=== PATIENT | female | born 1950 | race Two or more races ===

== ENCOUNTER → 2020-05-27 | Outpatient (CLI) | payer MEDICARE ==
[2020-05-27 09:49] LABS: HCT 38.1 % (34.0-46.0); HGB 12.4 gm/dL (11.4-16.0); MCH 29.6 pg (25.0-35.0); MCHC 32.7 g/dL (31.0-37.0); MCV 90.5 fL (80.0-100.0); Mean Platelet Volume 6.7; Platelet Count 182 k/uL (150-450); RBC 4.21 m/uL (3.80-5.40); RDW 13.8 % (11.5-15.5); WBC 7.8 k/uL (3.8-10.6)
[2020-05-27 09:54] LABS: INR 0.9 (<1.2); Partial Thromboplastin Time 24.2 sec (22.0-30.0); Prothrombin Time 9.6 sec (9.0-12.0)
[2020-05-27 10:08] LABS: Appearance,Urine Clear (Clear); Bilirubin,Urine Negative (Negative); Blood,Urine Negative (Negative); Color,Urine Light Yellow; Glucose,Urine (UA) Negative (Negative); Ketones,Urine Negative (Negative); Leukocyte Esterase,Urine Negative (Negative); Nitrite,Urine Negative (Negative); Protein,Urine Negative (Negative); Specific Gravity,Urine 1.009 (1.001-1.035); Urobilinogen,Urine <2.0 mg/dL (<2.0)
[2020-05-27 10:32] LABS: Albumin 4.4 g/dL (3.5-5.0); Calcium 9.8 mg/dL (8.4-10.2); Potassium 4.5 mmol/L (3.5-5.1); Total Bilirubin 0.6 mg/dL (0.2-1.3); Total Protein 7.1 g/dL (6.3-8.2)
== END | disposition home or self-care (01) ==
LOC: LABPAT 07:57
PROVIDERS: ATTEND Orthopaedic Surgery
DX: Z01.818 Encounter for other preprocedural examination (principal); Z01.812 Encounter for preprocedural laboratory examination; Z79.01 Long term (current) use of anticoagulants
CPT/HCPCS: 36415; 80053; 81003; 85027; 85610; 85730; 86850; 86900; 86901; 87070; 93005

== ENCOUNTER 2020-06-03 09:31 | Observation (INO) | payer MEDICARE ==
[2020-05-27 15:40] VITALS: BMI 47.6
[~2020-06-03 09:31] MED LIST: ACETAMINOPHEN TAB 500 MG TAB PO ONE; DEXAMETHASONE SOD PHOSPHATE 10 MG/ML 1 ML VIAL IV ONE; GABAPENTIN 300 MG CAP PO ONE; MELOXICAM 7.5 MG TAB PO ONE; MIDAZOLAM 2 MG/2 ML VIAL IV PRN; ONDANSETRON 4 MG/2 ML VIAL IVP ONE; ROPIVACAINE 246.25 MG, EPINEPHrine 0.5 MG, KETOROLAC 30 MG, cloNIDine HCL/PF 80 MCG, WA... MISCELLANE ONE; TRANEXAMIC ACID 1,000 MG in SODIUM CHLORIDE 0.9% 100 ML IVPB ONE; ceFAZolin 3 GM in SODIUM CHLORIDE 0.9% 100 ML IVPB ONE
[2020-06-03] MEDS ORDERED: ACETAMINOPHEN TAB 500 MG TAB ONE (09:58)
[2020-06-03] MEDS ORDERED: ONDANSETRON 4 MG/2 ML VIAL ONE (09:58)
[2020-06-03] MEDS: LACTATED RINGERS 1,000 ML IV SCH (10:10)
[2020-06-03] MEDS ORDERED: PROPOFOL 10 MG/ML 20 ML VIAL IV ONE (11:40)
[2020-06-03] MEDS ORDERED: GLYCOPYRROLATE 0.2 MG/ML 2 ML VIAL ONE (11:40)
[2020-06-03] MEDS ORDERED: fentaNYL (PF) 50 MCG/ML 2 ML AMP ONE (11:40)
[2020-06-03] MEDS ORDERED: ROCURONIUM 10 MG/ML (5 ML VIAL) IV ONE (11:40)
[2020-06-03] MEDS ORDERED: NEOSTIGMINE 1 MG/ML 10 ML VIAL ONE (11:40)
[2020-06-03] MEDS ORDERED: SODIUM CHLORIDE 0.9% IRRIG 1,000 ML BTL IRRIGATION ONE (11:40)
[2020-06-03] MEDS ORDERED: MIDAZOLAM 2 MG/2 ML VIAL ONE (11:40)
[2020-06-03] MEDS ORDERED: KETAMINE 10 MG/ML 20 ML VIAL ONE (11:40)
[2020-06-03] MEDS ORDERED: SODIUM CHLORIDE 0.9% 100 ML BAG ONE (11:40)
[2020-06-03] MEDS ORDERED: HEPARIN SODIUM,PORCINE 10,000 UNIT/ML 1 ML VIAL ONE (11:40)
[2020-06-03] MEDS ORDERED: TRANEXAMIC ACID 1,000 MG/10 ML VIAL ONE (11:40)
[2020-06-03] MEDS ORDERED: SUCCINYLCHOLINE CHLORIDE 100 MG/5 ML SYR IV ONE (11:40)
[2020-06-03] MEDS ORDERED: HYDROmorphone (PF) 1 MG/ML ONE (11:40)
[2020-06-03] MEDS ORDERED: LACTATED RINGERS 1,000 ML IV ONE ×2 (13:26→15:24)
--- NOTE | 2020-06-03 13:38 | XR ---
Fluoroscopy History: RT TOTAL HIP Rt total hip. 42 sec fl. 3 images scanned.
--- NOTE | 2020-06-03 13:47 | P.OP ---
Date of Procedure: 06/03/20 Preoperative Diagnosis: Severe osteoarthritis right hip Postoperative Diagnosis: Severe osteoarthritis right hip Procedure(s) Performed: Right total hip arthroplasty with a direct anterior approach Implants: العلي and nephew Polarstem size 3 standard العلي [employer] Nephew R3, 3 hole acetabular shell, 52 mm ال[employer]ي [employer] Nephew reflection 6.5 mm cancellus screw, 20 mm 2 [employer]ي [employer] Nephew R3, XLPE 20 acetabular liner العلي [employer] Nephew Oxinium femoral head 36 m, -3 All components were press-fit. The articulation is Oxinium on polyethylene. Anesthesia: spinal Surgeon: Juan Miguel Ornelas Commercial Sales Consultant #1: Jesse Bhagat Estimated Blood Loss (ml): 250 (120 mL returned with Cell Saver) Pathology: other (Femoral head) Condition: stable Disposition: PACU Indications for Procedure: After failure of conservative treatment we discussed the surgical and nonsurgical treatment options at length. Patient wishes to proceed with a total hip arthroplasty with a direct anterior approach. Complications specific to this procedure were discussed at length, including but not limited to infection, leg length discrepancy, dislocation, and nerve injury. Covid-19 was also discussed at length with the patient, and they are aware of the current policies and procedures. The patient was given the option of delaying surgery, but they elect to proceed knowing these risks. Patient is aware of all these complications and informed consent was obtained Operative Findings: The operative findings are consistent with severe osteoarthritis of the right hip Description of Procedure: Patient was seen and evaluated in the preoperative area, consent was reviewed, and the surgical site was marked with a skin marker. Patient was then brought to the operating room and given prophylactic antibiotics intravenously. 1 g of Tranexamic acid was also given. A spinal anesthetic was administered by the anesthesia department. The patient was then placed on the [place] table with the bony prominences well-padded. The hip area was then prepped and draped in usual sterile fashion. A universal timeout was then performed, which confirmed the patient's name, surgical site, ALLERGIES, and procedure being performed. Next the incision site was located at 1 cm distal and 1 cm lateral to the anterior superior iliac spine. The skin and subcutaneous tissues were sharply incised. Incision was carefully dissected down to the fascia overlying the tensor fascia karel muscle. This fascia was then incised in line with the incision. Next, using blunt finger dissection, the tensor fascia karel muscle was dissected off its investing fascia. The muscle was then carefully retracted laterally with a cobra retractor over the lateral neck of the femur. Next, the circumflex vessels were identified and cauterized using the AquaMantis device. The anterior hip capsule was then exposed. The capsule was then opened and an inverted T fashion. Cobra retractors were then placed intracapsularly. The proximal femur was then visualized. The femoral neck was then osteotomized appropriate level above the lesser trochanter. Small amount of traction was placed with the [place] table. A small wedge of bone was then removed from the remaining femoral head. Next, using a corkscrew femoral head was easily removed from the acetabulum. On gross visual inspection, the femoral head had complete loss of articular cartilage in multiple periarticular osteophytes. Attention was then turned to the acetabulum. the acetabulum was exposed and any remaining labrum was excised. Sequential reaming of the acetabulum was performed using fluoroscopic guidance. When the appropriate size was reached, a trial was then placed. The position and fit of the trial was checked with fluoroscopy. The trial was then removed. Then, using fluoroscopic guidance, the final implant was impacted at 20 of anteversion and 40 of abduction, and fully seated in the acetabulum. 2 screws were then placed in the acetabulum. Again fluoroscopy was used to check position of the screws. Next, the liner was then impacted, with a 20 elevated liner located in the anterior superior quadrant. Component locking was confirmed. Attention was then directed to the femur. With the aid of the [place] table, the femur was externally rotated to approximately 130, extended, and abducted under the opposite leg. A side hook was then placed under the proximal femur, and the side hook elevator was used to elevate the proximal femur. Retractors were then placed. A capsular release was performed, as well as a release of the conjoined tendon, which afforded excellent visualization of the proximal femur. Next, a box osteotome was used to lateralize the proximal femur. A seasonal package handler was then used to locate the femoral canal. Sequential broaching was then performed with appropriate size which afforded excellent fixation in the proximal femur. A trial was then placed with appropriate head and neck, and the hip was gently reduced with the aid of the [place] table. Fluoroscopy was then used to check position of the components, as well as to ensure equal leg lengths. The hip was then gently dislocated and the trials were then removed. Final implants were then impacted and the hip was again reduced. Final fluoroscopic x-rays confirmed that the components were in anatomic position, as well as equal leg lengths. The hip was also taken through range of motion, and found to be stable. The hip was then copiously irrigated with antibiotic solution with pulsatile lavage. The hip was then irrigated with Irrisept solution. The soft tissues were then injected with a ropivacaine solution, which consisted of 246.25 mg of ropivacaine, 0.5 mg of epinephrine, 30 mg of Toradol, 80 g of clonidine, and 48.45 mL of sterile water, for a total of 100 mL of fluid injected. A second dose of 1 g of Tranexamic acid was also given. the fascia was then closed with 2-0 strata fix suture. The subcutaneous tissue was closed with 3-0 Vicryl. The subcuticular tissue was closed with 3-0 strata fix suture. The skin was then closed with Dermabond glue and a sterile silver dressing. The patient was then transferred to the recovery room in stable condition. The sales and marketing assistant CHANA Petty was required due to the complexity of surgery, and the need for skilled surgical services director for positioning, draping, exposure, retraction, and closure of the wound.
[2020-06-03] MEDS ORDERED: ONDANSETRON 4 MG/2 ML VIAL IVP PRN (14:26)
[2020-06-03] MEDS ORDERED: NALOXONE 0.4 MG/ML 1 ML VIAL IV PRN (14:26)
[2020-06-03] MEDS ORDERED: hydrOXYzine pamoate 25 MG CAP PO PRN (14:26)
[2020-06-03] MEDS ORDERED: HYDROmorphone 0.5 MG/0.5 ML SYRINGE IVP PRN ×2 (14:26)
[2020-06-03] MEDS ORDERED: HYDROcodone/APAP 5-325MG 1 EACH TAB PO PRN (14:26)
[2020-06-03] MEDS: HYDROmorphone 0.5 MG/0.5 ML SYRINGE IVP PRN ×4 (14:40→22:47)
--- NOTE | 2020-06-03 14:59 | XR ---
EXAMINATION TYPE: XR Hip Limited RT DATE OF EXAM: 06/03/2020 CLINICAL HISTORY: Postoperative evaluation TECHNIQUE: Single portable view of the right hip was submitted. FINDINGS: Noted are changes of total hip arthroplasty with femoral and acetabular components appearin g well seated. Alignment is anatomic. Postsurgical soft tissue changes are evident. IMPRESSION: Satisfactory postoperative alignment
[2020-06-03] MEDS ORDERED: ONDANSETRON 4 MG/2 ML VIAL IVP ONE (15:13)
[2020-06-03] MEDS ORDERED: KETOROLAC 30 MG/ML 1 ML VIAL IVP ONE (15:20)
[2020-06-03] MEDS: ceFAZolin 3 GM in SODIUM CHLORIDE 0.9% 100 ML IVPB SCH (20:48)
[2020-06-03] MEDS: SENNOSIDES-DOCUSATE SODIUM 1 EACH TAB PO SCH (20:49)
[2020-06-03] MEDS: ASPIRIN 325 MG TAB PO SCH (20:49)
[2020-06-03] MEDS: HYDROcodone/APAP 5-325MG 1 EACH TAB PO PRN (20:54)
[2020-06-04] MEDS: HYDROmorphone 0.5 MG/0.5 ML SYRINGE IVP PRN (01:58)
[2020-06-04] MEDS: GABAPENTIN 400 MG CAP PO SCH ×4 (02:00→23:00)
[2020-06-04] MEDS: ceFAZolin 3 GM in SODIUM CHLORIDE 0.9% 100 ML IVPB SCH (04:57)
[2020-06-04] MEDS: LACTATED RINGERS 1,000 ML IV SCH (07:21)
[2020-06-04] MEDS: HYDROcodone/APAP 5-325MG 1 EACH TAB PO PRN (07:51)
[2020-06-04] MEDS: METOPROLOL SUCCINATE (ER) 50 MG TAB.ER.24H PO SCH (07:52)
[2020-06-04] MEDS: DULoxetine HCL 60 MG CAPSULE.DR PO SCH (07:52)
[2020-06-04] MEDS: ASPIRIN 325 MG TAB PO SCH ×2 (07:52→20:29)
[2020-06-04 09:10] LABS: Basophils % (A) 0 %; Eosinophils % (A) 0 %; HCT 32.4 % (34.0-46.0); HGB 10.4 gm/dL (11.4-16.0); Lymphocytes # (A) 1.2 k/uL (1.0-4.8); Lymphocytes % (A) 13 %; MCH 29.2 pg (25.0-35.0); MCHC 32.2 g/dL (31.0-37.0); MCV 90.6 fL (80.0-100.0); Mean Platelet Volume 7.4; Monocytes # (A) 0.6 k/uL (0-1.0); Monocytes % (A) 7 %; Neutrophils # (A) 6.9 k/uL (1.3-7.7); Neutrophils % (A) 78 %; Platelet Count 213 k/uL (150-450); RBC 3.57 m/uL (3.80-5.40); RDW 13.7 % (11.5-15.5); WBC 8.9 k/uL (3.8-10.6)
[2020-06-04] MEDS ORDERED: HYDROcodone/APAP 7.5-325MG 1 EACH TAB PO PRN (12:22)
--- NOTE | 2020-06-04 12:36 | P.PN ---
Subjective Progress Note Date: 06/04/20 This is a 69 year-old female who is status post right total hip arthroplasty. This is postoperative day #1 and patient is seen and evaluated at bedside with Dr. Juan Miguel Ornelas. Patient states that the right hip is sore today, but she has been up and walking. Patient denies any fever/chills, numbness, weakness or tingling. Objective - Vital Signs Vital signs: Vital Signs Temp 98.0 F 06/04/20 07:04 Pulse 82 06/04/20 07:04 Resp 16 06/04/20 07:04 BP 134/61 06/04/20 07:04 Pulse Ox 94 L 06/04/20 07:04 Intake & Output 06/03/20 06/04/20 06/04/20 18:59 06:59 18:59 Intake Total 2100 Output Total 250 350 Balance 1850 -350 Weight 135.8 kg Intake: IV 2100 Output: Urine 350 Estimated Blood Loss 250 Other: # Voids 1 - Exam On inspection dressing is clean, dry and intact. Minimal swelling to the right lower extremity. There is no erythema. Calf is soft and nontender to palpation. Patient has full foot and ankle motion without pain or difficulty. Neurovascular and circulatory status are intact. - Labs CBC & Chem 7: 06/04/20 07:59 Labs: Abnormal Lab Results - Last 24 Hours (Table) 06/04/20 Range/Units 07:59 RBC 3.57 L (3.80-5.40) m/uL Hgb 10.4 L (11.4-16.0) gm/dL Hct 32.4 L (34.0-46.0) % Assessment and Plan (1) Osteoarthritis of right hip Current Visit: Yes Status: Acute Code(s): M16.11 - UNILATERAL PRIMARY OSTEOARTHRITIS, RIGHT HIP SNOMED Code(s): 280135572906068 (2) Status post total hip replacement, right Current Visit: Yes Status: Acute Code(s): Z96.641 - PRESENCE OF RIGHT ARTIFICIAL HIP JOINT SNOMED Code(s): 207119668397 Plan: 1. Weightbearing as tolerated to the right lower extremity. 2. Continue routine postoperative care and pain control. 3. Ice to the right hip as needed. 4. Continue physical therapy. 5. Aspirin for DVT prophylaxis. 6. Plan for discharge home with home care tomorrow.
[2020-06-04] MEDS ORDERED: METHYL SALICYLATE/MENTHOL CREAM 5 OZ TOPICAL PRN (12:44)
[2020-06-04] MEDS: HYDROcodone/APAP 7.5-325MG 1 EACH TAB PO PRN ×2 (12:47→20:29)
[2020-06-04] MEDS ORDERED: FLUTICASONE 50MCG/SPRAY NASAL 16GM EA NOSTRIL PRN (13:43)
[2020-06-04] MEDS: SENNOSIDES-DOCUSATE SODIUM 1 EACH TAB PO SCH (20:29)
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
[2020-06-04] MEDS ORDERED: NON FORMULARY DRUG (Aspirin [Adult Low Dose Aspirin Ec] 81 MG) PO SCH (21:00)
[2020-06-05] MEDS: LACTATED RINGERS 1,000 ML IV SCH (01:35)
[2020-06-05] MEDS: HYDROcodone/APAP 7.5-325MG 1 EACH TAB PO PRN ×2 (05:56→11:08)
[2020-06-05 07:37] VITALS: BP 118/75; PULSE 86; RESP 18; TEMP 99.5
[2020-06-05] MEDS: ASPIRIN 325 MG TAB PO SCH (07:52)
[2020-06-05] MEDS: METOPROLOL SUCCINATE (ER) 50 MG TAB.ER.24H PO SCH (07:52)
[2020-06-05] MEDS: DULoxetine HCL 60 MG CAPSULE.DR PO SCH (07:52)
[2020-06-05] MEDS: GABAPENTIN 400 MG CAP PO SCH (07:53)
[2020-06-05] MEDS ORDERED: POTASSIUM CHLORIDE ER 20 MEQ TAB.ER PO SCH (09:00)
[2020-06-05] MEDS ORDERED: MULTIVITAMINS, THERA 1 EACH TAB PO SCH (09:00)
--- NOTE | 2020-06-05 10:16 | P.DS ---
Providers Date of admission: 06/04/20 11:16 Expected date of discharge: 06/05/20 Attending physician: Juan Miguel Ornelas Consults: 06/03/20 14:26 Consult Physician Routine Consulting Provider: Boris Verdugo Consult Reason/Comments: medical management Do you want consulting provider notified?: Yes Primary care physician: Bal Corral MD Hospital Course: This is a 74-year-old female who was last seen in our office by Dr. Juan Miguel Ornelas with complaints of continued right hip pain. The patient has a known history of degenerative arthritis of the right hip and presents to discuss surgical options. After discussion and consideration the patient elects to proceed with total right hip arthroplasty. She is seen preoperatively by her family physician and cleared for surgery. The patient is admitted to [facility] for total right hip arthroplasty. The procedure is performed without complication or sequelae. The patient is doing well postoperatively. Vital signs and postoperative labs are stable. The patient is seen and examined bedside this morning. She is sitting up in the bedside chair. She states she is experiencing minimal pain in the right hip. She has been up ambulating with physical therapy today with a walker with minimal assistance. She states she otherwise feels well. She denies chest pain, shortness breath, nausea, vomiting, fevers, chills. She has no complaints this morning. Vital sign stable. On examination, the patient is sitting up in the bedside chair in no apparent distress. She is alert and orientated x3. On inspection of the right hip, there is a clean, dry, intact Optifoam dressing in place. No bleeding or drainage through the dressing. Mild pain on palpation of the right hip. Thigh is soft and compressible. Patient has good strength and range of motion of the right ankle. Motor and sensory function intact of the right lower extremity. The right lower extremity is warm and well perfused with brisk capillary refill distally. Calf is soft and nontender to palpation. The patient is discharged to home with home health services today in good condition, pending medical clearance. Please see discharge orders. Please refer to the med rec for accurate list of medications. Patient Condition at Discharge: Fair Plan - Discharge Summary Discharge Rx Participant: Yes New Discharge Prescriptions: New Aspirin 325 mg PO BID #60 tab Sennosides [Senokot] 2 tab PO DAILY PRN #60 tablet PRN Reason: Constipation HYDROcodone/APAP 7.5-325MG [Maria Stein 7.5-325] 1 - 2 tab PO Q6H PRN #32 tab PRN Reason: Pain No Action Losartan Potassium 100 mg PO QAM DULoxetine HCL [Cymbalta] 60 mg PO DAILY Potassium Chloride 20 meq PO QAM Gabapentin 800 mg PO Q8HR Triamterene/Hydrochlorothiazid [Triamterene-Hctz 37.5-25 mg Tb] 2 each PO QAM Metoprolol Succinate (ER) [Toprol Xl] 50 mg PO DAILY Furosemide 20 mg PO DAILY Multivitamins, Thera [Multivitamin (formulary)] 1 tab PO DAILY Vitamin E 500 unit PO DAILY Aspirin [Adult Low Dose Aspirin EC] 81 mg PO HS Fluticasone Nasal [place] [Flonase Nasal [place]] 2 spr EA NOSTRIL DAILY PRN PRN Reason: alerrgies Discharge Medication List Aspirin [Adult Low Dose Aspirin EC] 81 mg PO HS 05/27/20 [History] DULoxetine HCL [Cymbalta] 60 mg PO DAILY 05/27/20 [History] Fluticasone Nasal [place] [Flonase Nasal [place]] 2 spr EA NOSTRIL DAILY PRN 05/27/20 [History] Furosemide 20 mg PO DAILY 05/27/20 [History] Gabapentin 800 mg PO Q8HR 05/27/20 [History] Losartan Potassium 100 mg PO QAM 05/27/20 [History] Metoprolol Succinate (ER) [Toprol Xl] 50 mg PO DAILY 05/27/20 [History] Multivitamins, Thera [Multivitamin (formulary)] 1 tab PO DAILY 05/27/20 [History] Potassium Chloride 20 meq PO QAM 05/27/20 [History] Triamterene/Hydrochlorothiazid [Triamterene-Hctz 37.5-25 mg Tb] 2 each PO QAM 05/27/20 [History] Vitamin E 500 unit PO DAILY 05/27/20 [History] Aspirin 325 mg PO BID #60 tab 06/04/20 [Rx] HYDROcodone/APAP 7.5-325MG [[place] 7.5-325] 1 - 2 tab PO Q6H PRN #32 tab 06/04/20 [Rx] Sennosides [Senokot] 2 tab PO DAILY PRN #60 tablet 06/04/20 [Rx] Follow up Appointment(s)/Referral(s): Bal Corral MD [Primary Care Provider] - 06/13/20 9:30 am (at the walk in clinic at [facility]) Juan Miguel Ornelas DO [Doctor of Osteopathic Medicine] - 06/16/20 3:00 pm (With Jessica) Patient Instructions/Handouts: How to Choose and Use a Walker (GEN), Anterior Hip Replacement (DC) Activity/Diet/Wound Care/Special Instructions: [facility] home care: [phone] Weight bear as tolerated with walker. Remove dressing in 10 days. May shower with dressing intact. Wear compression stockings until follow up Take pain medications as prescribed. Ice incision as needed. Report any problems or concerns to [facility] at [phone] Discharge Disposition: HOME WITH HOME HEALTH SERVICES
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
== END 2020-06-05 13:57 | disposition home health service (06) ==
LOC: OR 09:31 → 4SSUR 13:51 → OR 06-04 11:16
PROVIDERS: ADMIT Orthopaedic Surgery; ATTEND Orthopaedic Surgery
DX: M16.11 Unilateral primary osteoarthritis, right hip (principal); I10 Essential (primary) hypertension; M79.7 Fibromyalgia; M19.90 Unspecified osteoarthritis, unspecified site; Z79.899 Other long term (current) drug therapy; Z79.82 Long term (current) use of aspirin; Z88.0 Allergy status to penicillin; Z87.828 Personal history of other (healed) physical injury and trauma; E66.01 Morbid (severe) obesity due to excess calories; Z68.42 Body mass index [BMI] 45.0-49.9, adult; M25.562 Pain in left knee; Z98.1 Arthrodesis status; Z96.652 Presence of left artificial knee joint; Z80.9 Family history of malignant neoplasm, unspecified; Z82.49 Family history of ischemic heart disease and other diseases of the circulatory system; Z82.61 Family history of arthritis
CPT/HCPCS: 97162; 97535; 97166; 86891; 85025; 88300; 73501; 27130; G0378 ×2; P9022; C1776; J2250; J0171; J1644; J1100; J2710; J0690 ×2; J2405; J3010; J1885; J1170 ×3; J2795; J0330; J2704; J0735; 86850; 86900; 86901

== ENCOUNTER 2024-03-04 15:52 | Inpatient (IN) | payer MEDICARE ==
[2024-03-04 17:18] LABS: Basophils % (A) 0 %; Eosinophils # (A) 0.1 k/uL (0-0.7); Eosinophils % (A) 1 %; HCT 33.4 % (34.0-46.0); HGB 11.2 gm/dL (11.4-16.0); Lymphocytes % (A) 14 %; MCH 31.7 pg (25.0-35.0); MCHC 33.6 g/dL (31.0-37.0); MCV 94.3 fL (80.0-100.0); Mean Platelet Volume 7.8; Monocytes # (A) 0.3 k/uL (0-1.0); Monocytes % (A) 5 %; Neutrophils # (A) 5.6 k/uL (1.3-7.7); Neutrophils % (A) 78 %; Platelet Count 172 k/uL (150-450); RBC 3.55 m/uL (3.80-5.40); RDW 15.4 % (11.5-15.5); WBC 7.2 k/uL (3.8-10.6)
[2024-03-04 17:31] LABS: ALT 43 U/L (4-34); AST 40 U/L (14-36); African American GFR (CKD) 59 (>60 ml/min/1.73 sqM); Alkaline Phosphatase 85 U/L (38-126); Anion Gap 7 mmol/L; Blood Urea Nitrogen 49 mg/dL (7-17); Carbon Dioxide 29 mmol/L (22-30); Chloride 103 mmol/L (98-107); Glucose 129 mg/dL (74-99); Non-African American GFR(CKD) 51 (>60 ml/min/1.73 sqM); Potassium 4.8 mmol/L (3.5-5.1); Sodium 139 mmol/L (137-145); Total Bilirubin 0.3 mg/dL (0.2-1.3); Total Protein 6.5 g/dL (6.3-8.2)
[2024-03-04 17:38] LABS: INR 0.9 (<1.2); Partial Thromboplastin Time 21.6 sec (22.0-30.0); Prothrombin Time 10.2 sec (10.0-12.5)
[2024-03-04 17:39] LABS: NT-Pro-B-Type Natriuretic Pept 1140 pg/mL
--- NOTE | 2024-03-04 18:08 | XR ---
EXAMINATION TYPE: XR chest 2V DATE OF EXAM: 03/04/2024 5:38 PM CLINICAL INDICATION:Female, 73 years old with history of Chest Pain; dizziness. COMPARISON: None TECHNIQUE: XR chest 2V Frontal and lateral views of the chest. FINDINGS: Lungs/Pleura: There is no evidence of pleural effusion, focal consolidation, or pneumothorax. Pulmonary vascularity: Unremarkable. Heart/mediastinum: Cardiomediastinal silhouette is unremarkable. Musculoskeletal: No acute osseous pathology. Bilateral shoulder prostheses are identified. Partially visualized cervical fusion hardware. IMPRESSION: No acute cardiopulmonary disease/process.
[2024-03-04 19:04] LABS: Appearance,Urine Clear (Clear); Bilirubin,Urine Negative (Negative); Blood,Urine Negative (Negative); Color,Urine Colorless; Glucose,Urine (UA) Negative (Negative); Ketones,Urine Negative (Negative); Leukocyte Esterase,Urine Negative (Negative); Nitrite,Urine Negative (Negative); Protein,Urine Negative (Negative); Specific Gravity,Urine 1.008 (1.001-1.035); Urobilinogen,Urine <2.0 mg/dL (<2.0)
--- NOTE | 2024-03-04 19:38 | CT ---
EXAMINATION TYPE: CT chest angio for PE CT DLP: 820.8 mGycm, Automated exposure control for dose reduction was used. DATE OF EXAM: 03/04/2024 7:28 PM COMPARISON: None. CLINICAL INDICATION:Female, 73 years old with history of chest pain, shortness of breath; elevated d- dimer TECHNIQUE/CONTRAST: CTA scan of the thorax is performed with IV Contrast, patient injected with 100 mL of Isovue 370, MIP images are created and reviewed these are created on a separate workstation.. FINDINGS: Pulmonary Artery: There is no evidence for a filling defect within the pulmonary vasculature to sugge st acute pulmonary embolism. The pulmonary artery is of normal size. Lungs/Pleura: No evidence of focal consolidation, pleural effusion or pneumothorax. Airway: Large airways are patent. Heart: Heart is within normal limits for size. Vasculature: No evidence of aortic aneurysm. Mediastinum: No gross evidence of adenopathy. Musculoskeletal: Moderate degenerative disc disease changes are present throughout the thoracolumbar spine. Soft Tissues: Unremarkable. Lower neck: No significant findings. Upper Abdomen: Partially visualized hepatic cysts. Cholelithiasis. IMPRESSION: 1. No evidence of pulmonary embolism. 2. Cholelithiasis.
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
[2024-03-04] MEDS ORDERED: NALOXONE 0.4 MG/ML 1 ML VIAL IV PRN (21:39)
[2024-03-04] MEDS ORDERED: HYDROmorphone 1 MG/ML 1 ML SYRINGE IVP PRN (21:39)
[2024-03-04] MEDS ORDERED: KETOROLAC 15 MG/ML 1 ML VIAL IVP PRN (21:39)
[2024-03-04] MEDS ORDERED: HYDROmorphone 0.5 MG/0.5 ML SYRINGE IVP PRN (21:39)
[2024-03-04] MEDS ORDERED: ONDANSETRON 4 MG/2 ML VIAL IVP PRN (21:39)
[2024-03-05] MEDS: METOPROLOL SUCCINATE (ER) 50 MG TAB.ER.24H PO SCH (10:01)
[2024-03-05] MEDS ORDERED: CAFFEINE CITRATE 60 MG/3 ML VIAL IV PRN (10:25)
[2024-03-05] MEDS ORDERED: AMINOPHYLLINE 500 MG/20 ML VIAL IV PRN (10:25)
[2024-03-05] MEDS ORDERED: REGADENOSON 0.4 MG/5 ML SYRINGE IV PRN (10:25)
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
[2024-03-05] MEDS: GABAPENTIN 400 MG CAP PO SCH (12:02)
[2024-03-05] MEDS: DULoxetine HCL 60 MG CAPSULE.DR PO SCH (12:02)
[2024-03-05] MEDS: ASPIRIN 81 MG PO SCH (21:10)
[2024-03-05] MEDS: ATORVASTATIN 20 MG TAB PO SCH (21:10)
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
[2024-03-05] MEDS: HEPARIN SODIUM,PORCINE 5,000 UNIT/ML 1 ML VIAL SQ SCH (23:53)
[2024-03-06 07:20] LABS: Basophils % (A) 0 %; Eosinophils # (A) 0.2 k/uL (0-0.7); Eosinophils % (A) 3 %; HCT 34.8 % (34.0-46.0); Lymphocytes # (A) 1.7 k/uL (1.0-4.8); Lymphocytes % (A) 27 %; MCH 29.8 pg (25.0-35.0); MCHC 31.7 g/dL (31.0-37.0); MCV 94.1 fL (80.0-100.0); Mean Platelet Volume 7.9; Monocytes # (A) 0.4 k/uL (0-1.0); Monocytes % (A) 7 %; Neutrophils # (A) 3.7 k/uL (1.3-7.7); Neutrophils % (A) 61 %; Platelet Count 164 k/uL (150-450); RBC 3.69 m/uL (3.80-5.40); RDW 15.5 % (11.5-15.5); WBC 6.1 k/uL (3.8-10.6)
[2024-03-06 07:38] LABS: African American GFR (CKD) 67 (>60 ml/min/1.73 sqM); Anion Gap 4 mmol/L; Blood Urea Nitrogen 31 mg/dL (7-17); Calcium 9.3 mg/dL (8.4-10.2); Carbon Dioxide 32 mmol/L (22-30); Chloride 104 mmol/L (98-107); Glucose 111 mg/dL (74-99); Non-African American GFR(CKD) 58 (>60 ml/min/1.73 sqM); Sodium 140 mmol/L (137-145)
--- NOTE | 2024-03-06 12:37 | NM ---
EXAMINATION TYPE: NM stress Lexiscan cardiol ite DATE OF EXAM: 03/06/2024 COMPARISON: NONE CLINICAL INDICATION: Female, 73 years old with history of chest pain; TECHNIQUE: After the intravenous administration of 10.8 mCi Tc 99m Sestamibi - Cardiolite resting SP ECT images acquired 45 minutes post injection. The patient received 0.4mg Lexiscan, 26.6 mCi Tc 99m Sestamibi - Stress images obtained [address] injection FINDINGS: Review of stress and rest SPECT images demonstrates no distinct perfusion abnormality. Gated analysi s shows normal wall motion with an estimated left ventricular ejection fraction of 53 %. SUM stress score: 18. SUM resting score: 19. SUM difference score 4. Suggest infarction with mild kevin-infarct reversible ischemia. Transient ischemic dilatation: 0.96. IMPRESSION: Findings indicate septal, apical and inferolateral infarct with mild kevin-infarct reversible severe i schemia.
--- NOTE | 2024-03-06 12:57 | CA ---
Lexiscan Nuclear Stress Test Report Name: Jeane Wiggins Exam Date: 03/06/2024 10:07 Exam Location: [facility] Stress Ht (in): 66 Wt (lb): 285 BSA: 2.33 Ordering Phys: Tara Joiner Referring Phys: EMA, Technologist: Gray Brunner Age: 73 Gender: F : 1950 Procedure CPT: Indications: Reflex order-Stress test ICD-10 Codes: Patient History: Medications: SEE CHART Meds past 24 hrs: Pretest Chest Pain: STRESS TEST Lexiscan Protocol Exercise Duration (min:sec): 02:[address] Depressions (mm): Angina Score: Yancey Score: Resting HR (bpm): 80 Peak HR (bpm): 95 Resting BP (mmHg): 163 / 50 Peak BP (mmHg): 186 / 77 MPHR: 149 Target HR: 127 % MPHR: 64 METS: 1.0 Total Dose: Peak Dose: Atropine: Double Product: 87522 BP Response: Stress Termination: PROTOCOL COMPLETE Stress Symptoms: NO SYMPTOMS Stress Summary: ECG ANALYSIS Resting ECG: Stress ECG: CONCLUSIONS Nondiagnostic stress testing Dr. Cirilo Bates MD (Electronically Signed) Final Date: 06 Mar 2024 12:56
[2024-03-06] MEDS ORDERED: ALPRAZolam 0.25 MG TAB PO PRN (13:07)
[2024-03-06] MEDS ORDERED: NITROGLYCERIN SL TABS 0.4 MG TAB SUBLINGUAL PRN (13:07)
[2024-03-06] MEDS ORDERED: ALPRAZolam 0.5 MG TAB PO PRN (13:07)
--- NOTE | 2024-03-06 13:15 | CA ---
Transthoracic Echo Report Name: Jeane Wiggins Age: 73 Gender: F : 1950 Exam Date: 03/05/2024 16:00 Exam Location: [facility] Echo Ht (in): 64 Wt (lb): 285 Ordering Physician: Tara Joiner Attending/Referring Phys: [id number], Rhys Conductor/Engineer Renea Manley RDCS Procedure CPT: Indications: LVF Cardiac Hx: Technical Quality: Contrast 1: Definity Total Dose (mL): 2 Contrast 2: Total Dose (mL): MEASUREMENTS (Male / Female) Normal Values 2D ECHO LV Diastolic Diameter PLAX 4.3 cm 4.2 - 5.9 / 3.9 - 5.3 cm LV Systolic Diameter PLAX 2.7 cm IVS Diastolic Thickness 1.6 cm 0.6 - 1.0 / 0.6 - 0.9 cm LVPW Diastolic Thickness 1.6 cm 0.6 - 1.0 / 0.6 - 0.9 cm LV Relative Wall Thickness 0.7 RV Internal Dim ED PLAX 3.1 cm LA Systolic Diameter LX 3.5 cm 3.0 - 4.0 / 2.7 - 3.8 cm LA Volume 79.7 cm??? 18 - 58 / 22 - 52 cm??? LA Volume Index 31.9 cm???/m??? 16 - 28 cm???/m??? M-MODE Aortic Root Diameter MM 3.6 cm MV E Point Septal Separation 0.3 cm AV Cusp Separation MM 2.0 cm DOPPLER AV Peak Velocity 175.0 cm/s AV Peak Gradient 12.2 mmHg MV Area PHT 3.1 cm??? Mitral E Point Velocity 131.6 cm/s Mitral A Point Velocity 118.5 cm/s Mitral E to A Ratio 1.1 MV Deceleration Time 247.6 ms TR Peak Velocity 319.3 cm/s TR Peak Gradient 40.8 mmHg Right Ventricular Systolic Press 45.6 mmHg FINDINGS Left Ventricle Left ventricular ejection fraction is estimated at 55-60 %. Left ventricular cavity size normal. Moderate concentric left ventricular hypertrophy. Normal left ventricular wall motion. Right Ventricle Normal right ventricular size and function. Moderate pulmonary hypertension. Right ventricular systolic pressure estimated at 46 mm hg. Right Atrium Right atrium not well visualized. Left Atrium Mildly increased left atrial volume. Mildly increased left atrial area. Mitral Valve Thickened mitral valve without stenosis. Mitral annular calcification. No mitral stenosis, regurgitation or prolapse. Aortic Valve Trileaflet aortic valve. No aortic valve stenosis or regurgitation. Tricuspid Valve Structurally normal tricuspid valve. Mild tricuspid regurgitation. Pulmonic Valve Structurally normal pulmonic valve. Trace pulmonic regurgitation. Pericardium No pericardial effusion. Aorta Normal size aortic root and proximal ascending aorta. CONCLUSIONS Technically difficult study for interpretation Normal LV systolic function Moderate pulmonary hypertension. RVSP is a 26 mmHg Poorly visualized intracardiac valves Previewed by: Dr. Cirilo Bates MD (Electronically Signed) Final Date: 06 Mar 2024 13:14
[2024-03-06] MEDS: ATORVASTATIN 80 MG TAB PO STA (13:52)
[2024-03-06] MEDS: ASPIRIN 325 MG TAB PO STA (13:52)
[2024-03-06] MEDS: fentaNYL (PF) 50 MCG/1 ML VIAL IVP ONE (14:15)
[2024-03-06] MEDS: LIDOCAINE 1% INJ 10MG/ML (20 ML MDV) SQ ONE (14:15)
[2024-03-06] MEDS: MIDAZOLAM 2 MG/2 ML VIAL IVP ONE (14:15)
[2024-03-06] MEDS: HEPARIN SODIUM 1,000 UN/ML (10ML VL) IVP ONE (14:18)
--- NOTE | 2024-03-06 15:24 | P.PN ---
Subjective Progress Note Date: 03/06/24 Consult reason: chest pain (And syncope) History of present illness: History of present illness: This is a 73-year-old female with past medical history of hypertension, hyperlipidemia, obstructive sleep apnea with a recent diagnosis. Patient denies having any previous cardiac history and does not follow with a vegetable cook. We have been asked to evaluate the patient for chest pain and syncope. Patient presented with complaints of lightheadedness and dizziness and patient subsequently developed chest pain in the middle of her chest. She was seen initially at [facility]. She underwent a CAT scan and patient had a period of 3 to 4-second pause on a rhythm strip. Upon review of reports from [place], patient had a 3.8-second pause. Other symptoms include that she has been feeling lethargic for the past 1 to 2 days leading up to these episodes. She states she had a couple episodes of this lightheadedness yesterday along with nausea and profuse sweating. She states she has had a lot of headaches for the past couple of days. At rest right now she feels the room is spinning. She has a cough that is chronic and no change. Patient denies smoking history and she drinks wine very rarely. Patient is seen today in the emergency center waiting for bed on the cardiac stepdown unit. EKG sinus rhythm with first-degree block Chest x-ray: No acute process CTA of the chest reveals no evidence of pulmonary embolism. Cholelithiasis. Laboratory studies: WBC 7.2, hemoglobin 11.2, D-dimer 1.55. Electrolytes are normal. BUN 49 creatinine 1.09. Blood sugar 129. AST 40 and ALT 43. Troponin negative x 3. proBNP 1140. Urinalysis negative. Home cardiac medications: Aspirin 81 mg daily, Cardizem CD 180 mg at bedtime, Lasix 20 mg twice daily, losartan 50 mg daily, Toprol XL 50 mg daily, potassium chloride 20 mill equivalents daily, Crestor 10 mg at bedtime, triamterene/hydrochlorothiazide 37.5-25 mg daily. 03/06 Patient underwent Lexiscan stress test concerning for septal, apical, inferior lateral infarct with mild kevin-infarct reversible severe ischemia. Results of stress test reviewed with the patient. Recommendation is for cardiac catheterization and patient is agreeable to proceed with this. Heart rate is running between 52 and 79, blood pressure 137/73, pulse ox 94% on room air. Hemoglobin 11. BUN 31 creatinine 0.99. Echocardiogram reveals technically difficult study. Normal LV systolic function. Moderate pulmonary hypertension. RVSP is 26 mmHg. Physical examination: Gen: This is a 73-year-old female in no acute distress VS: reviewed HEENT: Head is atraumatic, normocephalic. Pupils equal, round. Sclerae is anicteric. NECK: Supple. No JVD. LUNGS: Clear to auscultation. No wheezes or rhonchi. No intercostal retractions. HEART: Regular rate and rhythm. No murmur. ABDOMEN: Soft No tenderness. EXTREMITIES: No pedal edema. No calf tenderness. NEUROLOGICAL: Patient is awake, alert and oriented x3. Assessment: Syncopal episode possible vasovagal 3.8-second pause on telemetry Chest pain with negative troponins and Lexiscan stress test with reversible severe ischemia, rule out coronary artery disease Hypertension Hyperlipidemia Plan: Hold patient's home cardiac medications except for aspirin and statin Continue telemetry monitoring Schedule patient for cardiac catheterization today with Dr. Watkins Plan for 30-day event monitor prior to discharge Further recommendations as patient progresses. Nurse practitioner note has been reviewed, I agree with documented findings and plan of care. Patient was seen and examined. Objective - Vital Signs Vital signs: Vital Signs Temp 98.4 F 03/06/24 12:10 Pulse 79 03/06/24 12:10 Resp 17 03/06/24 12:10 BP 137/73 03/06/24 12:10 Pulse Ox 94 L 03/06/24 12:10 FiO2 Intake & Output 03/05/24 03/06/24 03/06/24 18:59 06:59 18:59 Output Total 750 Balance -750 Weight 129.274 kg Output: Urine 750 Other: Voiding Method External Catheter External Catheter # Voids 1 # Bowel Movements 0 1 - Labs CBC & Chem 7: 03/06/24 06:50 03/06/24 06:50 Labs: Abnormal Lab Results - Last 24 Hours (Table) 03/06/24 03/06/24 Range/Units 06:50 06:50 RBC 3.69 L (3.80-5.40) m/uL Hgb 11.0 L (11.4-16.0) gm/dL Carbon Dioxide 32 H (22-30) mmol/L BUN 31 H (7-17) mg/dL Glucose 111 H (74-99) mg/dL
[2024-03-06] MEDS ORDERED: VERAPAMIL 2.5 MG/ML 2 ML AMP ONE (15:57)
[2024-03-06] MEDS ORDERED: LIDOCAINE 1% INJ 10MG/ML (20 ML MDV) ONE (15:57)
[2024-03-06] MEDS ORDERED: fentaNYL (PF) 50 MCG/ML 2 ML AMP ONE (16:06)
[2024-03-06] MEDS ORDERED: HEPARIN SODIUM 1,000 UN/ML (10ML VL) ONE (16:06)
[2024-03-06] MEDS: IOPAMIDOL-370 100ML BTL INTRATHECA ONE (16:30)
[2024-03-06] MEDS: SODIUM CHLORIDE 0.9% 1,000 ML IV ONE (16:30)
--- NOTE | 2024-03-06 16:36 | P.CARDCATH ---
Description of Procedure: PROCEDURES PERFORMED: Left heart catheterization, bilateral coronary angiography, ultrasound guided arterial access INDICATION: Abnormal stress test CONSENT:I have discussed the risks, benefits and alternative therapies for the above-mentioned procedure and for both sedation/analgesia as well as necessary blood product administration, if indicated, as they pertain to this patient. The patient has indicated understanding and acceptance of the risks and procedures discussed. PROCEDURE: After the risks, benefits and alternatives of the above mentioned procedure explained in detail with the patient, informed consent was obtained. Patient was taken to the catheterization lab and prepped and draped in usual fashion. Ultrasound guidance was used to assess for arterial access. 1% lidocaine was used to anesthetize the right radial artery. A 6-Kenyan sheath was placed in the right radial artery using modified Seldinger technique and ultrasound guidance. Left coronary angiography was performed with a 5-Kenyan JL 3.5 catheter and right coronary angiography was performed with a 5-Kenyan FR5 catheter in various views. A 5-Kenyan FR5 catheter was inserted into the left ventricle and pressure measurements were obtained. The right radial sheath was removed and a TR band was placed with hemostasis achieved. The patient to lerated the procedure well. Patient was transported back to the post catheterization holding area in stable condition. Conscious Sedation: Patient was monitored under the direct supervision of myself for conscious sedation using Versed and fentanyl for a total duration of 9 minutes HEMODYNAMICS: Ao: 143/71 LV: 141/4, LVEDP 16 SELECTIVE CORONARY ARTERIOGRAPHY: LEFT MAIN: The left main is a large caliber vessel which bifurcates into the LAD and circumflex. There is no significant stenosis. LEFT ANTERIOR DESCENDING CORONARY ARTERY: LAD is a large caliber vessel which wraps around to the apex. There is no significant stenosis. LEFT CIRCUMFLEX CORONARY ARTERY: Left circumflex is a moderate caliber vessel without significant stenosis. RIGHT CORONARY ARTERY: The right coronary artery is a large caliber vessel which gives off a PDA and PLV branch and is the dominant vessel. There is no significant stenosis. FINAL IMPRESSION: 1. Normal coronary arteries as described above. 2. High normal left sided filling pressures PLAN: 1. Aggressive risk factor modification per most recent ACC/AHA guidelines. 2. Follow-up in the office in 1-2 weeks.
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
[2024-03-07] MEDS ORDERED: HEPARIN SODIUM,PORCINE 10,000 UNIT in SODIUM CHLORIDE 0.9% 1,000 ML IRRIGATION PRN (07:00)
[2024-03-07] MEDS ORDERED: HEPARIN SODIUM,PORCINE (1 ML) 2,500 UNIT in SODIUM CHLORIDE 0.9% 250 ML IRRIGATION PRN (07:00)
--- NOTE | 2024-03-07 14:30 | P.PN ---
Subjective Progress Note Date: 03/07/24 Consult reason: chest pain (And syncope) History of present illness: History of present illness: This is a 73-year-old female with past medical history of hypertension, hyperlipidemia, obstructive sleep apnea with a recent diagnosis. 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 We have been asked to evaluate the patient for chest pain and syncope. Patient presented with complaints of lightheadedness and dizziness and patient subsequently developed chest pain in the middle of her chest. She was seen initially at [facility]. She underwent a CAT scan and patient had a period of 3 to 4-second pause on a rhythm strip. Upon review of reports from [place], patient had a 3.8-second pause. Other symptoms include that she has been feeling lethargic for the past 1 to 2 days leading up to these episodes. She states she had a couple episodes of this lightheadedness yesterday along with nausea and profuse sweating. She states she has had a lot of headaches for the past couple of days. At rest right now she feels the room is spinning. She has a cough that is chronic and no change. Patient denies smoking history and she drinks wine very rarely. Patient is seen today in the emergency center waiting for bed on the cardiac stepdown unit. EKG sinus rhythm with first-degree block Chest x-ray: No acute process CTA of the chest reveals no evidence of pulmonary embolism. Cholelithiasis. Laboratory studies: WBC 7.2, hemoglobin 11.2, D-dimer 1.55. Electrolytes are normal. BUN 49 creatinine 1.09. Blood sugar 129. AST 40 and ALT 43. Troponin negative x 3. proBNP 1140. Urinalysis negative. Home cardiac medications: Aspirin 81 mg daily, Cardizem CD 180 mg at bedtime, Lasix 20 mg twice daily, losartan 50 mg daily, Toprol XL 50 mg daily, potassium chloride 20 mill equivalents daily, Crestor 10 mg at bedtime, triamterene/hydrochlorothiazide 37.5-25 mg daily. 03/06 Patient underwent Lexiscan stress test concerning for septal, apical, inferior lateral infarct with mild kevin-infarct reversible severe ischemia. Results of stress test reviewed with the patient. Recommendation is for cardiac catheterization and patient is agreeable to proceed with this. Heart rate is running between 52 and 79, blood pressure 137/73, pulse ox 94% on room air. Hemoglobin 11. BUN 31 creatinine 0.99. Echocardiogram reveals technically difficult study. Normal LV systolic function. Moderate pulmonary hypertension. RVSP is 26 mmHg. 03/07 Yesterday, patient underwent cardiac catheterization with Dr. Watkins which revealed normal coronary arteries. Plan for aggressive risk factor mo dification. Blood pressure 172/76, heart rate 95, pulse ox 95% on room air. Event monitor has been placed. HRs have been varied from 40s to 90s. No long pauses over night. She continues to have episodes when she is not feeling well with dizziness, weakness, and headache. She describes as almost like a panic attack. Patient complains of shortness of breath at rest. She denies chest pain but complains of pressue. C/o cough. No fever or chills. Physical examination: Gen: This is a 73-year-old female in no acute distress VS: reviewed HEENT: Head is atraumatic, normocephalic. Pupils equal, round. Sclerae is anicteric. NECK: Supple. No JVD. LUNGS: Clear to auscultation. No wheezes or rhonchi. No intercostal retractions. HEART: Regular rate and rhythm. Systolic murmur. ABDOMEN: Soft No tenderness. EXTREMITIES: No pedal edema. No calf tenderness. NEUROLOGICAL: Patient is awake, alert and oriented x3. Assessment: Syncopal episode possible vasovagal 3.8-second pause on telemetry Chest pain with negative troponins and Lexiscan stress test with reversible severe ischemia, ruled out coronary artery disease on cardiac cath Hypertension Hyperlipidemia Plan: Continue aspirin and statin Resume losartan 50 mg daily Continue telemetry monitoring Avoid beta-eric and any AV ca blockers Plan for 30-day event monitor prior to discharge 1 L IV fluid bolus followed by 80 cc/h. Monitor overnight and will discharge home tomorrow Further recommendations as patient progresses. Nurse practitioner note has been reviewed, I agree with documented findings and plan of care. Patient was seen and examined. Objective - Vital Signs Vital signs: Vital Signs Temp 98.1 F 03/07/24 07:59 Pulse 95 03/07/24 12:07 Resp 16 03/07/24 12:07 BP 172/76 03/07/24 12:07 Pulse Ox 95 03/07/24 12:07 FiO2 Intake & Output 03/06/24 03/07/2403/07/24 18:59 06:59 18:59 Intake Total 678 536 Balance 678 536 Weight 141.5 kg Intake: IV 200 Oral 478 536 Other: Voiding Method External Catheter External Catheter # Voids 1 3 # Bowel Movements 1 - Labs CBC & Chem 7: 03/06/24 06:50 03/06/24 06:50
[2024-03-07] MEDS: LOSARTAN 50 MG TAB PO SCH (14:33)
[2024-03-07] MEDS: SODIUM CHLORIDE 0.9% 1,000 ML IV ONE (14:35)
[2024-03-07] MEDS: SODIUM CHLORIDE 0.9% 1,000 ML IV SCH (17:38)
[2024-03-07 20:38] VITALS: RESP 18
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
[2024-03-08 09:53] VITALS: TEMP 98.4
[2024-03-08 10:45] LABS: African American GFR (CKD) 83 (>60 ml/min/1.73 sqM); Anion Gap 4 mmol/L; Blood Urea Nitrogen 17 mg/dL (7-17); Carbon Dioxide 26 mmol/L (22-30); Chloride 108 mmol/L (98-107); Glucose 114 mg/dL (74-99); Non-African American GFR(CKD) 72 (>60 ml/min/1.73 sqM); Potassium 4.4 mmol/L (3.5-5.1); Sodium 138 mmol/L (137-145)
[2024-03-08 12:10] VITALS: BP 170/81; PULSE 84
--- NOTE | 2024-03-08 13:50 | P.PN ---
Subjective Progress Note Date: 03/08/24 Consult reason: chest pain (And syncope) History of present illness: History of present illness: This is a 73-year-old female with past medical history of hypertension, hyperlipidemia, obstructive sleep apnea with a recent diagnosis. 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 We have been asked to evaluate the patient for chest pain and syncope. Patient presented with complaints of lightheadedness and dizziness and patient subsequently developed chest pain in the middle of her chest. She was seen initially at [facility]. She underwent a CAT scan and patient had a period of 3 to 4-second pause on a rhythm strip. Upon review of reports from [place], patient had a 3.8-second pause. Other symptoms include that she has been feeling lethargic for the past 1 to 2 days leading up to these episodes. She states she had a couple episodes of this lightheadedness yesterday along with nausea and profuse sweating. She states she has had a lot of headaches for the past couple of days. At rest right now she feels the room is spinning. She has a cough that is chronic and no change. Patient denies smoking history and she drinks wine very rarely. Patient is seen today in the emergency center waiting for bed on the cardiac stepdown unit. EKG sinus rhythm with first-degree block Chest x-ray: No acute process CTA of the chest reveals no evidence of pulmonary embolism. Cholelithiasis. Laboratory studies: WBC 7.2, hemoglobin 11.2, D-dimer 1.55. Electrolytes are normal. BUN 49 creatinine 1.09. Blood sugar 129. AST 40 and ALT 43. Troponin negative x 3. proBNP 1140. Urinalysis negative. Home cardiac medications: Aspirin 81 mg daily, Cardizem CD 180 mg at bedtime, Lasix 20 mg twice daily, losartan 50 mg daily, Toprol XL 50 mg daily, potassium chloride 20 mill equivalents daily, Crestor 10 mg at bedtime, triamterene/hydrochlorothiazide 37.5-25 mg daily. 03/06 Patient underwent Lexiscan stress test concerning for septal, apical, inferior lateral infarct with mild kevin-infarct reversible severe ischemia. Results of stress test reviewed with the patient. Recommendation is for cardiac catheterization and patient is agreeable to proceed with this. Heart rate is running between 52 and 79, blood pressure 137/73, pulse ox 94% on room air. Hemoglobin 11. BUN 31 creatinine 0.99. Echocardiogram reveals technically difficult study. Normal LV systolic function. Moderate pulmonary hypertension. RVSP is 26 mmHg. 03/07 Yesterday, patient underwent cardiac catheterization with Dr. Watkins which revealed normal coronary arteries. Plan for aggressive risk factor mo dification. Blood pressure 172/76, heart rate 95, pulse ox 95% on room air. Event monitor has been placed. HRs have been varied from 40s to 90s. No long pauses over night. She continues to have episodes when she is not feeling well with dizziness, weakness, and headache. She describes as almost like a panic attack. Patient complains of shortness of breath at rest. She denies chest pain but complains of pressue. C/o cough. No fever or chills. 03/08 Patient continued to complain of not feeling well with dizziness and weakness. No logical explanation for her symptoms. Blood pressure is elevated today 165/76, heart rate is in the 80s and pulse ox 95% on room air. She has been resumed on losartan. Physical examination: Gen: This is a 73-year-old female in no acute distress VS: reviewed HEENT: Head is atraumatic, normocephalic. Pupils equal, round. Sclerae is anicteric. NECK: Supple. No JVD. LUNGS: Clear to auscultation. No wheezes or rhonchi. No intercostal retractions. HEART: Regular rate and rhythm. Systolic murmur. ABDOMEN: Soft No tenderness. EXTREMITIES: No pedal edema. No calf tenderness. NEUROLOGICAL: Patient is awake, alert and oriented x3. Assessment: Syncopal episode possible vasovagal 3.8-second pause on telemetry Chest pain with negative troponins and Lexiscan stress test with reversible severe ischemia, ruled out coronary artery disease on cardiac cath Hypertension Hyperlipidemia Plan: Continue aspirin and statin Recommend continuing losartan 50 mg daily Hold metoprolol, Cardizem and triamterene/hydrochlorothiazide Decrease Lasix to once daily Continue 30-day event monitor Patient to monitor blood pressure at home Patient is cleared by cardiology for discharge and may follow-up in the office with Dr. Watkins in 1-2 weeks Nurse practitioner note has been reviewed, I agree with documented findings and plan of care. Patient was seen and examined. Objective - Vital Signs Vital signs: Vital Signs Temp 98.4 F 03/08/24 09:16 Pulse 84 03/08/24 11:28 Resp 18 03/08/24 11:28 BP 170/81 03/08/24 11:28 Pulse Ox 95 03/08/24 11:28 FiO2 Intake & Output 03/07/24 03/08/24 03/08/24 18:59 06:59 18:59 Intake Total 654 120 120 Balance 654 120 120 Intake: Oral 654 120 120 Other: Voiding Method External Catheter # Voids 2 2 1 - Labs CBC & Chem 7: 03/06/24 06:50 03/08/24 10:05 Labs: Abnormal Lab Results - Last 24 Hours (Table) 03/08/24 Range/Units 10:05 Chloride 108 H (98-107) mmol/L Glucose 114 H (74-99) mg/dL
--- NOTE | 2024-03-12 06:54 | P.DS ---
Providers Date of admission: 03/04/24 17:08 Expected date of discharge: 03/08/24 Attending physician: Boris Verdugo Consults: 03/04/24 21:39 Consult Physician Urgent Consulting Provider: [facility] Consult Reason/Comments: Chest pain, syncope Do you want consulting provider notified?: Yes Primary care physician: Bal Corral MD Hospital Course: Final diagnosis Chest pain ruled out ACS. Lexiscan stress test showed reversible ischemia. Patient is s/p cardiac catheterization showed nonobstructive. Syncopal episode x 2 likely orthostatic versus vasovagal. Sinus pause on telemetry Elevated D-dimer level and CT angiogram is negative for PE. Dehydration and volume depletion Fibromyalgia Hypertension Hyperlipidemia Depression/anxiety Morbid obesity BMI 46.0 DVT prophylaxis GI prophylaxis Full code Discharge disposition Patient is being discharged in a stable condition with guarded prognosis to home. Patient will follow-up with Dr. Corral in the outpatient setting upon discharge. Patient is to continue with current medications and close outpatient follow-up with cardiology as scheduled. Total time taken is greater than 35 minutes. Hospital course This is a 73-year-old female who was recently admitted with chest pain, ruled out ACS being closely monitored. Patient evaluated by cardiology recommending Lexiscan which was concerning for possible reversible ischemia recommending cardiac catheterization. Patient underwent catheterization showing nonobstructive disease. Patient monitored with cardiology following and adjustments to medications made has been cleared by cardiology for discharge. Blood pressures are on the elevated side and okay per cardiology and will be followed closely with medications adjusted. Please refer to cardiology notes for further HPI. Currently no reports of chest pain, shortness of breath, or palpitations. Patient is afebrile. No reports of nausea or vomiting and patient is tolerating diet. Patient will be discharged home today. Guarded prognosis Physical exam: Gen: This is a 73-year-old female who is awake, alert and oriented x 3, well- developed, well-nourished, morbidly obese HEENT: Head is atraumatic, normocephalic. Pupils equal, round. Sclerae is anicteric. NECK: Supple. No JVD. No lymphadenopathy. No thyromegaly. LUNGS: Diminished breath sounds bilaterally otherwise clear to auscultation. No wheezes or rhonchi. No intercostal retractions. HEART: S1, S2 are muffled ABDOMEN: Soft. Obese. Bowel sounds are present. No masses. No tenderness. EXTREMITIES: No pedal edema. No calf tenderness. NEUROLOGICAL: Patient is awake, alert and oriented x3. Cranial nerves 2 through 12 are grossly intact. Please refer to medication reconciliation sheet for a list of medications. The impression and plan of care has been dictated by Miriam Calvillo, Nurse Practitioner as directed. Dr. Syd MD I have performed a history and examination and MDM of this patient, discussed the same with the dictator, and agree with the dictator's assessment and plan as written ,documented as a scribe. Based on total visit time, I have performed more than 50% of the visit. Patient Condition at Discharge: Good Plan - Discharge Summary New Discharge Prescriptions: New Furosemide [Lasix] 20 mg PO DAILY #30 tab Continue DULoxetine HCL [Cymbalta] 60 mg PO DAILY Gabapentin 800 mg PO BID Multivitamins, Thera [Multivitamin (formulary)] 1 tab PO DAILY Aspirin [Adult Low Dose Aspirin EC] 81 mg PO HS Rosuvastatin [Crestor] 10 mg PO HS HYDROcodone/APAP 10-325MG [[place] 10-325] 1 tab PO Q6H PRN PRN Reason: Pain Losartan [Cozaar] 50 mg PO DAILY Discontinued Triamterene/Hydrochlorothiazid [Triamterene-Hctz 37.5-25 mg Tb] 2 tab PO DAILY Metoprolol Succinate (ER) [Toprol Xl] 50 mg PO DAILY Potassium Chloride ER [K-Dur 20] 20 meq PO DAILY Diltiazem Cd [Cardizem CD] 180 mg PO HS Furosemide [Lasix] 20 mg PO BID Discharge Medication List Aspirin [Adult Low Dose Aspirin EC] 81 mg PO HS 05/27/20 [History] DULoxetine HCL [Cymbalta] 60 mg PO DAILY 05/27/20 [History] Gabapentin 800 mg PO BID 05/27/20 [History] Multivitamins, Thera [Multivitamin (formulary)] 1 tab PO DAILY 05/27/20 [History] HYDROcodone/APAP 10-325MG [[place] 10-325] 1 tab PO Q6H PRN 03/04/24 [History] Losartan [Cozaar] 50 mg PO DAILY 03/04/24 [History] Rosuvastatin [Crestor] 10 mg PO HS 03/04/24 [History] Furosemide [Lasix] 20 mg PO DAILY #30 tab 03/08/24 [Rx] Follow up Appointment(s)/Referral(s): Jerry Watkins DO [STAFF PHYSICIAN] - 1 Week (Office to call pt with appointment date and time) Bal Corral MD [Primary Care Provider] - 1-2 days (Left message with office to call patient with appointment date and time) Patient Instructions/Handouts: After Radial Heart Catheterization (GEN) Activity/Diet/Wound Care/Special Instructions: Activity limited until follow-up Follow-up with primary care provider on discharge Continue current medications as prescribed and close outpatient follow-up with cardiology Discharge Disposition: HOME SELF-CARE
== END 2024-03-08 17:02 | disposition home or self-care (01) | DRG 287 ==
LOC: EC 15:52 → 3SCARD 17:08
PROVIDERS: ADMIT Hospitalist; ATTEND Hospitalist
PROC: B2111ZZ Fluoroscopy of Multiple Coronary Arteries using Low Osmolar Contrast (ICD-10-PCS; principal; 2024-03-06 10:15)
PROC: 4A023N7 Measurement of Cardiac Sampling and Pressure, Left Heart, Percutaneous Approach (ICD-10-PCS; principal; 2024-03-06 10:15)
DX: R07.9 Chest pain, unspecified (principal); Z68.42 Body mass index [BMI] 45.0-49.9, adult; I27.20 Pulmonary hypertension, unspecified; E66.01 Morbid (severe) obesity due to excess calories; F32.A Depression, unspecified; I10 Essential (primary) hypertension; R55 Syncope and collapse; E86.0 Dehydration; G47.33 Obstructive sleep apnea (adult) (pediatric); E78.5 Hyperlipidemia, unspecified; F41.9 Anxiety disorder, unspecified; I44.0 Atrioventricular block, first degree; K80.20 Calculus of gallbladder without cholecystitis without obstruction; M79.7 Fibromyalgia; M19.90 Unspecified osteoarthritis, unspecified site; Z79.82 Long term (current) use of aspirin; Z79.899 Other long term (current) drug therapy; Z96.611 Presence of right artificial shoulder joint; Z96.612 Presence of left artificial shoulder joint; Z96.653 Presence of artificial knee joint, bilateral; Z96.642 Presence of left artificial hip joint; Z98.1 Arthrodesis status; Z88.1 Allergy status to other antibiotic agents
CPT/HCPCS: 36415; 71046; 71275; 76937; 78452; 80048; 80053; 81003; 82607; 83735; 83880; 84443; 84484; 85025; 85379; 85610; 85730; 93005; 93017; 93270; 93306; 93458; 99285

== ENCOUNTER → 2024-07-23 | Outpatient (CLI) | payer MEDICARE ==
--- NOTE | 2024-07-28 10:36 | CT ---
EXAMINATION TYPE: CT shoulder LT wo con DATE OF EXAM: 07/23/2024 COMPARISON: None HISTORY: left shoulder pain CT DLP: 1163.2 mGycm Automated exposure control for dose reduction was used. FINDINGS: There is a prosthetic left humeral head. Metallic artifact limits evaluation of the glenohumeral join t and AC joint. There is no acute fracture. There is no periprosthetic ostiolysis IMPRESSION: LEFT HUMERAL HEAD PROSTHESIS WHICH LIMITS THE STUDY OF THE REMAINING OSSEOUS STRUCTURES. THERE IS NO ACUTE FRACTURE OR ostiolysis [facility], , 07/28/2024 10:34 AM
== END | disposition home or self-care (01) ==
LOC: RADCTMAIN 16:26
PROVIDERS: ATTEND Orthopaedic Surgery
DX: Z47.89 Encounter for other orthopedic aftercare (principal); M19.012 Primary osteoarthritis, left shoulder